=== PATIENT | male | born 1955 | race Caucasian/White ===

== ENCOUNTER 2019-05-20 15:58 | Emergency (ER) | payer OTHER ==
[~2019-05-20 15:58] MED LIST: MET500 PO
[2019-05-20 16:06] VITALS: BP 113/90
--- NOTE | 2019-05-20 16:32 | ER Report ---
History and Physical Time Seen By MD: 15:58 Hx. of Stated Complaint: RIGHT FINGER LACERATION HPI/ROS CHIEF COMPLAINT: lac on distal right finger HISTORY OF PRESENT ILLNESS: Pt was trying to open up a soup can and hit the distal medial aspect of his right ring finger. 1cm laceration. lac opens when bending his dip joint so he came to ed for closure. Pt denies parathesias or decreased sensation. pt has full range of motion. REVIEW OF SYSTEMS: Constitutional: No fever, no chills. Musculoskeletal: No finger pain Skin: + finger lac. Neurological: No weakness or parathesias Allergies: Coded Allergies: No Known Drug Allergies (Verified , 05/20/19) Home Meds Reported Medications Metformin Hcl (Glucophage) 500 Mg Tab, 500 MG PO QDAY, 0 Refills 10/09/08 Past Medical/Surgical History Pmhx: dm2 Reviewed Nurses Notes: Yes Hx Substance Use Disorder: No Hx Alcohol Use: No Constitutional Vital Sign - Last 24 Hours 05/20/19 16:06 Temp 98.5 Pulse 83 Resp 12 B/P (MAP) 113/90 Pulse Ox 93 O2 Delivery Room Air Physical Exam General appearance: alert no distress Right hand: There is no significant swelling. There is no obvious deformity to the hand. There is no tenderness to phalanges or metacarples. Skin: + 1cm laceration on right ring finger Neurologic exam: The patient has normal sensation distal to the injury. Tendon function is intact. Vascular exam: Normal pulses and capillary refill in the fingers [ ] DIFFERENTIAL DIAGNOSIS: After history and physical exam differential diagnosis was considered for finger injury including nerve, ligamentous and tendon injuries. Medical Decision Making ED Course/Re-evaluation ED Course Procedure: Laceration repair. [Verbal consent was obtained from the patient.] The 1cm laceration on the r ring finger was anesthetized in the usual fashion. The wound was scrubbed, drap ed and explored to its base with a gloved finger. There were no deep structures involved. No tendon injury was identified. The wound was repaired with 5.0 ethlon. The wound repair was simple, 2 inturrupted sutures. The procedure was performed by myself. Decision to Disposition Date: May 20, 2019 Decision to Disposition Time: 16:40 Depart Departure Latest Vital Signs Vital Signs Date Time Temp Pulse Resp B/P (MAP) Pulse Ox O2 Delivery O2 Flow Rate FiO2 05/20/19 16:06 98.5 83 12 113/90 93 Room Air Impression: Primary Impression: Laceration of ring finger Condition: Improved Disposition: HOME OR SELF-CARE Patient Instructions: Facial Laceration (ED) Additional Instructions: You have two sutures which should be removed in 10-12 days. Keep your finger clean You may shower or run under clean running water. Neosporin or antibiotic ointment to wound twice a day. Return for any concerns. Problem Qualifiers Primary Impression: Laceration of ring finger Encounter type: initial encounter Damage to nail status: without damage Foreign body presence: without foreign body Laterality: right Qualified Codes: S61.214A - Laceration without foreign body of right ring finger without damage to nail, initial encounter JAMES MONTANEZ DO May 20, 2019 16:32
== END 2019-05-20 16:36 | disposition home or self-care (01) ==
LOC: ER 16:09
DX: S61.214A Laceration without foreign body of right ring finger without damage to nail, initial encounter (principal)
CPT/HCPCS: 99283